=== PATIENT | male | born 1975 | race Caucasian/White ===

== ENCOUNTER → 2024-07-31 | Outpatient (CLI) | payer BC ==
[~2024-07-31] MED LIST: ATORVASTATIN CA20 M1 PO; ESCITALOPRAM OX20 MG PO; METOPROLOL SUCC25 M2 PO; OXYCODONE-ACET1 EAC3 PO; TESTOSTERO200 MG/1 M IM
== END | disposition home or self-care (01) ==
LOC: RAD 08:58
PROVIDERS: ATTEND Orthopaedic Surgery
DX: M79.89 Other specified soft tissue disorders (principal); M25.561 Pain in right knee

== ENCOUNTER → 2024-08-01 | Day surgery (SDC) | payer BC ==
[2024-07-31 11:52] LABS: BUN 14 mg/dl (9-23); CHLORIDE 104 mmol/L (98-107)
[~2024-08-01] VITALS: Ht 182.8 cm; Wt 104.3 kg
[~2024-08-01] MED LIST changes: +ACETAMINOPHEN 100 ML IV ONE; +Bupivacaine Hydrochloride/Ep2 30 ML VIAL ONE; +Dexamethasone Sodium Phospha 4 MG/ML VIAL IV ONE; +HYDROmorphONE Hydrochloride 0.5 MG/0.5 ML SYRINGE IV PRN; +Ketorolac Tromethamine 30 MG/ML VIAL IV ONE; +Lactated Ringer's Solution 1,000 ML IV ONE; +Lidocaine Hydrochloride 2% 5 ML SDV IM ONE; +Midazolam Hydrochloride 2 MG/2 ML VIAL IV ONE; +Ondansetron Hydrochloride 4 MG/2 ML VIAL IV ONE; +PROPOFOL 200 MG/20 ML VIAL IV ONE; +ROCURONIUM BROMIDE 50 MG/5 ML SYRINGE IV ONE; +Ropivacaine Hydrochloride 5 MG/ML 20 ML AMP IJ ONE; +SEVOFLURANE 250 ML BOT INH ONE; +SUGAMMADEX SODIUM 200 MG/2 ML VIAL IV ONE; +ceFAZolin sodium/sodium chlor 30 ML IV ONE; +ePHEDrine Sulfate 25 MG/5 ML SYRINGE IV ONE; +fentaNYL CITRATE 100 MCG/2 ML VIAL IV ONE
[2024-08-01 08:28] VITALS: BP 134/82
[2024-08-01 11:18] VITALS: BP 141/78
[2024-08-01 11:33] VITALS: BP 149/76
[2024-08-01 11:48] VITALS: BP 146/70
[2024-08-01 12:03] VITALS: BP 155/69
[2024-08-01 12:18] VITALS: BP 140/78
== END | disposition home or self-care (01) ==
LOC: SDC 07-31 11:00
PROVIDERS: ATTEND Orthopaedic Surgery
DX: M66.261 Spontaneous rupture of extensor tendons, right lower leg (principal); I10 Essential (primary) hypertension; E78.5 Hyperlipidemia, unspecified; G89.18 Other acute postprocedural pain; Z98.52 Vasectomy status; Z87.891 Personal history of nicotine dependence; Z98.890 Other specified postprocedural states; Z91.040 Latex allergy status; Z91.018 Allergy to other foods; Z79.899 Other long term (current) drug therapy